=== PATIENT | female | born 1955 | race Caucasian/White ===

== ENCOUNTER 2017-08-31 15:27 | Emergency (ER) | payer BC ==
[~2017-08-31 15:27] MED LIST: CEFA-83 PO; CEPH500T7 PO; EST3 PO; KET10 PO; LEVO75TA68 PO; LOR5/325 PO; PROG100C PO
[2017-08-31] MEDS ORDERED: CYCL10TA29 PO ×2 (15:35→16:35)
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
--- NOTE | 2017-08-31 16:23 | RADIOLOGY IMAGING REPORT ---
FACILITY: [facility] [place] PATIENT NAME: Marcela Mtot : 1955 MR: [id number] V: [id number] EXAM DATE: ORDERING PHYSICIAN: KATHARINA CHICAS TECHNOLOGIST: Location: [facility] Patient: Marcela Mott : 1955 Visit/Account:[id number] Date of Sevice: 08/31/2017 EXAMINATION: Chest radiographs 2 views HISTORY: Fall with pain, worse with deep inspiration. COMPARISON: 05/26/2013. FINDINGS: PA and lateral views of the chest are submitted. Lines/tubes: None. Lungs/pleura: No focal consolidation or pleural effusion. Pulmonary vascularity is within normal spencer its. No evidence of pneumothorax. Heart: Normal heart size. Mediastinum: Negative. Bony structures/body wall: Negative. IMPRESSION: No radiographic evidence of acute cardiopulmonary disease. Report Dictated By: Michael Remy MD at 08/31/2017 4:15 PM Report E-Signed By: Michael Remy MD at 08/31/2017 4:20 PM WSN:[id number]
--- NOTE | 2017-08-31 16:26 | RADIOLOGY IMAGING REPORT ---
[place] [facility] [place]: Marcela Mott : 1955 MR: [id number] V: [id number] EXAM DATE: ORDERING PHYSICIAN: KATHARINA CHICAS TECHNOLOGIST: Location: [facility] Patient: Marcela Mott : 1955 Visit/Account:[id number] Date of Sevice: 08/31/2017 EXAMINATION: RIBS LEFT HISTORY: fall with pain, worse with deep inspiration COMPARISON: None. FINDINGS: 2 views of the left-sided ribs are obtained. Ribs/bones: Skin marker was placed overlying the posterior left 11th rib. No acute fracture is ident ified. Soft tissues: Negative. IMPRESSION: No evidence of acute left-sided rib fracture. Report Dictated By: Michael Remy MD at 08/31/2017 4:20 PM Report E-Signed By: Michael Remy MD at 08/31/2017 4:23 PM WSN:[id number]
[2017-08-31 16:30] VITALS: BP 119/97
[2017-08-31] MEDS ORDERED: KET10 PO (16:35)
[2017-08-31] MEDS ORDERED: KETOROLAC TROM 10 MG TAB TH PO ONE (16:35)
[2017-08-31] MEDS ORDERED: CYCLOBENZAPRINE HCL 10 MG TH PO ONE (16:35)
== END 2017-08-31 16:42 | disposition home or self-care (01) ==
LOC: ER 15:40
DX: S20.212A Contusion of left front wall of thorax, initial encounter (principal); W01.198A Fall on same level from slipping, tripping and stumbling with subsequent striking against other object, initial encounter
CPT/HCPCS: 71046; 71100; 99283

== ENCOUNTER → 2018-01-28 | Outpatient (CLI) | payer BC ==
[~2018-01-28] MED LIST changes: +CYCL10TA29 PO
--- NOTE | 2018-01-28 15:42 | RADIOLOGY IMAGING REPORT ---
FACILITY: [facility] PATIENT NAME: ESTEFANIA ANTONIO : [id number] MR: [id number] V: [id number] EXAM DATE: [id number] ORDERING PHYSICIAN: MARIXA GUTIERREZ TECHNOLOGIST: Kerry Magaña PROCEDURE:BILATERAL DIGITAL SCREENING MAMMOGRAM WITH CAD ASSISTED INTERPRETATION & 3D TOMOSYNTHESIS COMPARISON:Prior mammograms 01/16/17, 12/22/15, 08/28/12. INDICATIONS:screening FINDINGS: Moderately dense heterogeneous fibroglandular tissue is seen throughout the breasts. The parenchymal pattern has remained stable allowing for difference in mammographic technique & patient positioning. There is no evidence of malignant appearing mass, malignant appearing calcifications or other secondary sign of malignancy in either breast. DIAGNOSTIC CATEGORY 1--NEGATIVE. RECOMMENDATIONS: ROUTINE MAMMOGRAM AND CLINICAL EVALUATION. IMPRESSION: BIRADS 1: Negative. No significant abnormality is seen. Dictated by: Emerita Huang M.D. on 01/28/2018 at 15:21 Transcribed by: LÓPEZ on 01/28/2018 at 15:25 Approved by: Emerita Huang M.D. on 01/28/2018 at 15:41 [facility]
== END ==
LOC: MAMO 00:32
PROVIDERS: ATTEND Family Medicine
DX: Z12.31 Encounter for screening mammogram for malignant neoplasm of breast (principal); Z80.3 Family history of malignant neoplasm of breast
CPT/HCPCS: 77063; 77067